=== PATIENT | female | born 1950 | race Caucasian/White ===

== ENCOUNTER → 2024-03-23 06:20 | Day surgery (SDC) | payer OTHER, SELFPAY ==
[2024-03-23 08:18] LABS: Glucose - Point of Care 200 mg/dl (70-99)
== END ==
LOC: GI 06:20
PROVIDERS: ATTENDING PHYSICIAN Specialist
DX: Z12.11 Encounter for screening for malignant neoplasm of colon (principal); Z86.010 Personal history of colon polyps; K57.30 Diverticulosis of large intestine without perforation or abscess without bleeding; D12.0 Benign neoplasm of cecum; D12.3 Benign neoplasm of transverse colon; D12.4 Benign neoplasm of descending colon; K31.89 Other diseases of stomach and duodenum; R10.11 Right upper quadrant pain; K29.50 Unspecified chronic gastritis without bleeding; K31.A0 Gastric intestinal metaplasia, unspecified
CPT/HCPCS: 45385; 45381; 43239; 88305; 82962; 88342

== ENCOUNTER → 2024-03-29 10:04 | Outpatient (REF) | payer OTHER, SELFPAY | LOC: HWRAD 10:04 | PROVIDERS: ATTENDING PHYSICIAN Specialist; FAMILY PHYSICIAN Physician Assistant Medical | DX: K76.0 Fatty (change of) liver, not elsewhere classified (principal) | CPT/HCPCS: 76700 ==

== ENCOUNTER → 2024-04-08 08:58 | Outpatient (REF) | payer OTHER, SELFPAY | LOC: RAD 08:58 | PROVIDERS: ATTENDING PHYSICIAN Specialist; FAMILY PHYSICIAN Physician Assistant Medical | DX: R10.31 Right lower quadrant pain (principal) | CPT/HCPCS: 74177; Q9967 ==

== ENCOUNTER → 2024-10-11 06:15 | Day surgery (SDC) | payer OTHER, SELFPAY ==
[2024-10-11 07:25] LABS: Glucose - Point of Care 105 mg/dl (70-99)
== END ==
LOC: GI 06:15
PROVIDERS: ATTENDING PHYSICIAN Specialist
DX: Z12.11 Encounter for screening for malignant neoplasm of colon (principal); D12.0 Benign neoplasm of cecum; D12.3 Benign neoplasm of transverse colon; D12.4 Benign neoplasm of descending colon; K57.30 Diverticulosis of large intestine without perforation or abscess without bleeding; Z86.0101 Personal history of adenomatous and serrated colon polyps
CPT/HCPCS: 45385; 45380; 88305; 82962

== ENCOUNTER → 2025-06-09 14:22 | Outpatient (REF) | payer OTHER, SELFPAY | LOC: MRI 14:22 | PROVIDERS: ATTENDING PHYSICIAN Specialist; FAMILY PHYSICIAN Physician Assistant Medical | DX: K76.0 Fatty (change of) liver, not elsewhere classified (principal) | CPT/HCPCS: 74181; 76391 ==

== ENCOUNTER 2025-08-12 13:09 | Inpatient (IN) | payer OTHER, SELFPAY ==
[2025-08-12] VITALS (7 sets, daily range): BP systolic 146–176; BP diastolic 77–89; BMI 32.2
--- NOTE | 2025-08-12 09:10 | ED.GENMED ---
History of Present Illness
<Claire Borges PA-C - Last Filed: 08/12/25 11:41>
General
Chief Complaint: Fall
Source: patient
Exam Limitations: none
Time Seen by Provider: 08/12/25 08:58
Nursing documentation reviewed up to this point in time: agreed with
History of Present Illness
History of Present Illness:
Patient is a 75-year-old female with history diabetes who presents to the emergency department after fall this morning. She states she was leaning over in her bed to grab her phone when she slipped out of bed landing on her right side. She is
unsure if she hit her head. Fortunately�her phone was nearby and she was able to call her daughter for help. She then contacted 911 for transportation to the emergency department.
She describes significant pain in her right hip and right knee. She has been unable to bear weight or move her right lower extremity. She denies any headache or neck pain. No numbness/tingling in lower extremities.
She had a right knee replacement about 20 years ago.
She is not on any oral anticoagulation.
Past History
<Claire Borges PA-C - Last Filed: 08/12/25 11:41>
Past History
ED Past Medical History: Asthma, NIDDM and Other (History of arthritis, neck pain)
ED Past Surgical History: , Orthopedic (Knee surgery), Tonsilectomy and Other (Hernia surgery)
Social History
Tobacco: Non-smoker
Personal:
Living: alone
Employment: Employed
Review of Systems
<Claire Borges PA-C - Last Filed: 08/12/25 11:41>
Review of Systems
Allergies reviewed?: Yes
All Other Systems: ROS reviewed and negative except as documented in HPI and ROS
Phy Exam
<Claire Borges PA-C - Last Filed: 08/12/25 11:41>
Physical Exam
Physical Exam:
GENERAL: Mild distress due to pain
HEENT: atraumatic, extraocular muscles intact, no signs of entrapment, dentition intact, no other obvious trauma
NECK: no midline tenderness, normal range of motion,no other obvious trauma
BACK: no midline tenderness, no other obvious trauma
CHEST: Mild reproducible tenderness to right lower chest wall, no flail segment, no subcutaneous emphysema, no other obvious trauma
LUNGS: clear to auscultation bilaterally
CARDIOVASCULAR: regular rate and rhythm
ABDOMEN: soft, non-tender, no masses, no other obvious trauma
PELVIS: stable
EXTREMITIES: Right lower extremity shortened and externally rotated. Significant tenderness in right inguinal region/right proximal thigh. Reproducible tenderness of right proximal lower leg. No obvious deformity of right knee or effusion. Left
lower extremity atraumatic nontender full range of motion. Bilateral upper extremities atraumatic and nontender with full range of motion. Distal pulses intact
NEUROLOGIC: awake, alert x 3, no focal deficits
Course
<Claire Borges PA-C - Last Filed: 08/12/25 11:41>
Orders/Labs/Results
Orders:
Orders
08/12/25 09:07
CT Head W/o Iv Contrast Urgent
Comment:
Reason For Exam: Fall, unknown head strike
Hip, Right 2-3 Views [CR Hip - RT w/wo Pel 2-3 Vw*] Urgent
Comment:
Reason For Exam: fall
Include a pelvis x-ray?: Yes
Knee, Right 4 or More Views [CR Knee- Right 4 Or More View*] Urgent
Comment:
Reason For Exam: fall
Ribs, Right 3 View W/PA Chest [CR Ribs-right 3 Vw W/pa Chest*] Urgent
Comment:
Reason For Exam: Fall, right chest wall pain
08/12/25 09:08
Morphine Sulfate 4 mg IV NOW STA
08/12/25 09:20
Basic Metabolic Panel Urgent
Complete Blood Count/With Diff Urgent
08/12/25 10:31
HYDROmorphone [Dilaudid] 0.5 mg .ROUTE .STK-MED ONE
08/12/25 10:32
HYDROmorphone [Dilaudid] 0.5 mg IV NOW STA
08/12/25 11:00
Lidocaine [Lidocaine 4% Patch] 1 patch TOPICAL NOW STA
Apply Lidocaine patch(s) to:: Right lateral chest
Abnormal Lab Results
08/12/25
09:20
MCH 31.3 H pg
(27.0-31.0)
MPV 10.7 H fL
(7.4-10.4)
Chloride 108 H mmol/L
(98-107)
Glucose 150 H mg/dl
(70-99)
08/12/25 09:20
08/12/25 09:20
Vital Signs
Initial and Last Documented VS:
Initial Vital Signs
Temp Pulse Resp BP Pulse Ox
97.4 F 79 18 160/86 100
08/12/25 08:45 08/12/25 08:45 08/12/25 08:45 08/12/25 08:45 08/12/25 08:45
Last Documented Vital Signs
Temp Pulse Resp BP Pulse Ox
97.4 F 78 15 146/85 99
08/12/25 08:45 08/12/25 11:15 08/12/25 11:15 08/12/25 09:00 08/12/25 11:15
<John Moeller MD - Last Filed: 08/12/25 10:50>
Orders/Labs/Results
Orders:
Orders
08/12/25 09:07
CT Head W/o Iv Contrast Urgent
Comment:
Reason For Exam: Fall, unknown head strike
Hip, Right 2-3 Views [CR Hip - RT w/wo Pel 2-3 Vw*] Urgent
Comment:
Reason For Exam: fall
Include a pelvis x-ray?: Yes
Knee, Right 4 or More Views [CR Knee- Right 4 Or More View*] Urgent
Comment:
Reason For Exam: fall
Ribs, Right 3 View W/PA Chest [CR Ribs-right 3 Vw W/pa Chest*] Urgent
Comment:
Reason For Exam: Fall, right chest wall pain
08/12/25 09:08
Morphine Sulfate 4 mg IV NOW STA
08/12/25 09:20
Basic Metabolic Panel Urgent
Complete Blood Count/With Diff Urgent
08/12/25 10:31
HYDROmorphone [Dilaudid] 0.5 mg .ROUTE .STK-MED ONE
08/12/25 10:32
HYDROmorphone [Dilaudid] 0.5 mg IV NOW STA
08/12/25 11:00
Lidocaine [Lidocaine 4% Patch] 1 patch TOPICAL NOW STA
Apply Lidocaine patch(s) to:: Right lateral chest
Abnormal Lab Results
08/12/25
09:20
MCH 31.3 H pg
(27.0-31.0)
MPV 10.7 H fL
(7.4-10.4)
Chloride 108 H mmol/L
(98-107)
Glucose 150 H mg/dl
(70-99)
08/12/25 09:20
08/12/25 09:20
Vital Signs
Initial and Last Documented VS:
Initial Vital Signs
Temp Pulse Resp BP Pulse Ox
97.4 F 79 18 160/86 100
08/12/25 08:45 08/12/25 08:45 08/12/25 08:45 08/12/25 08:45 08/12/25 08:45
Last Documented Vital Signs
Temp Pulse Resp BP Pulse Ox
97.4 F 78 15 146/85 99
08/12/25 08:45 08/12/25 11:15 08/12/25 11:15 08/12/25 09:00 08/12/25 11:15
<Claire Borges PA-C - Last Filed: 08/12/25 11:41>
MDM/Problems Addressed
Differential Diagnosis Includes:
Not limited to: Hip fracture, hip dislocation, pelvic fracture, rib fracture, tibial plateau fracture, ligamentous injury, intracerebral hemorrhage, etc.
MDM/Problems Addressed:
75-year-old female presents to the ED after an unwitnessed fall from bed this morning. Patient reports landing on her right side with subsequent right hip and right knee pain. She is unable to bear weight on right lower extremity. Unknown head
strike. No neck pain reported.
On exam, right lower extremity shortened and externally rotated concerning for possible right hip fracture. Neurovascular status intact. No evidence of open injury. No anticoagulation.
ED plan: X-ray imaging of right hip, right knee. Will check x-ray of right ribs given reproducible tenderness on exam. Will obtain CT head given unwitnessed fall. Patient has no neck pain and full range of motion�do not feel imaging of cervical
spine indicated. Morphine ordered. She remains hemodynamically stable. Will reassess following imaging to determine disposition.
Update: Head CT without acute traumatic injuries. X-ray of right hip does reveal a comminuted intertrochanteric fracture of the right femur. Subtle nondisplaced fracture of right anterior seventh rib noted as well. Discussed with orthopedics,
Michael. Will admit to hospitalist with plan for OR tomorrow. Patient accepted to hospitalist service in stable condition. Discussed with patient and daughter at bedside.
Chronic conditions affecting care:
N/A
Acute Exacerbation and/or Progression of Chronic Illness:
N/A
<Claire Borges PA-C - Last Filed: 08/12/25 11:41>
*Radiology
Radiology exam reviewed: preliminary read by ED provider (Right hip x-ray reviewed by me-comminuted intertrochanteric fracture of right femur) and radiology read reviewed
*Pulse Oximetry
SaO2: 100
Oxygen Mode of Delivery: Room air
Patient hypoxic: no
*EKG
Interpreted by ED Provider?: NA
*Freight Weigher Interpretation
Rate: Freight Weigher- N/A
*Critical Care Note
Total Time (30-74mins, 75-104mins- exclusive of procedures): Not Applicable
<Claire Borges PA-C - Last Filed: 08/12/25 11:41>
Patient Management
Discussion with other providers: Hospitalist and Learning And Development Administrator (Case discussed with orthopedics)
ED Attending Note
<Claire Borges PA-C - Last Filed: 08/12/25 11:41>
-
Portions of this chart may have been created with voice recognition software.� Occasional wrong word or��sound alike� substitutions may have occurred due to the inherent limitations of voice recognition software.
<John Moeller MD - Last Filed: 08/12/25 10:50>
ED Attending Note
Patient seen and examined by attending physician: Yes
I performed the substantive portion of visit, reviewed & personally made and approve the management plan that is documented in note by myself or AKIL.: Yes
ED Attending Note:
75-year-old female slid out of bed landing on her right side. Not sure if she had any significant head injury. Mostly complaining of right hip pain unable to ambulate. Some mild pain with breathing. Takes an aspirin a day. No other issues or
complaints.
TRAUMA EXAM:
VITAL SIGNS: Vital signs reviewed, cooperative
DISTRESS: No active disease
FACE AND SCALP: No scalp or facial trauma, external canals no blood
NECK: Supple nontender
BACK: Pelvis stable to compression
RESPIRATORY: No distress, breath sounds normal, no tender chest wall
CARDIAC: No murmur, pulses equal and strong
ABDOMEN: Soft nontender bowel sounds normal
SKIN: Skin intact no bleeding, color normal
EXTREMITIES: Shortening external rotation of the right leg. Good distal pulses and color. No other significant bony tenderness
NEUROLOGICAL: Alert, oriented, no motor deficits
PSYCH: Mood affect normal
Impression comminuted intertrochanteric right hip fracture. Head CT negative. Nothing obvious on rib x-rays. Medically stable. Admit for definitive orthopedic management
Discharge Plan
Departure
Patient Disposition: Admit
Date of Disposition: 08/12/25
Time of Disposition: 10:33
Presentation/result/management discussed w/ accepting MD/DO: Hospitalist
Discharge Problem:
Intertrochanteric fracture of right femur
Prescriptions:
No Action
aspirin [Aspir-Low] 81 MG tablet,delayed release (DR/EC)
81 mg PO DAILY
Metformin Extended Release
500 tab PO BID
ibuprofen 600 mg Tablet
600 mg PO Q6HPRN PRN (Reason: Pain)
diclofenac sodium 1 % Gel
2 g TOPICAL QIDPRN PRN (Reason: pain)
bupropion HCl 300 mg Tablet Extended Release 24 Hr
300 mg PO DAILY
duloxetine 30 mg Capsule,Delayed Release(Dr/Ec)
30 mg PO DAILY
cholecalciferol (vitamin D3) [Vitamin D3] 125 mcg (5,000 unit) Tablet
125 mcg PO DAILY
mupirocin 2 % ointment
1 applic topical BID Qty: 1 0RF
Patient Comments:
Patient started this treatment on 07/08/22 in the morning. Patient adminsistered this medication today 07/11/22 @ 05:30.
aspirin 325 mg Tablet
325 mg PO DAILY 30 Days Qty: 30 0RF
Rx Instructions:
After 4 weeks, you may resume Aspirin 81 mg po daily as taken prior to surgery
mupirocin 2 % Ointment
1 applic intranasal BID Qty: 15 0RF
Rx Instructions:
Continue for 2 days post op
docusate sodium 100 mg Capsule
100 mg PO BID Qty: 14 0RF
Rx Instructions:
Take while using narcotic pain medication post operatively
famotidine 20 mg Tablet
20 mg PO HS 28 Days Qty: 28 0RF
sennosides [senna] 8.6 mg Tablet
17.2 mg PO BID 14 Days Qty: 56 0RF
Rx Instructions:
Take while using narcotic pain medication to prevent constipation
amlodipine 2.5 mg Tablet
2.5 mg PO DAILY Qty: 0 0RF
oxycodone 5 mg Tablet
5 mg PO Q4HPRN PRN (Reason: moderate pain) 5 Days Qty: 20 0RF
Rx Instructions:
Sent to [facility] in [place]
Referrals:
Tammi Orellana PA-C [Family Provider, Internal Medicine]
Interventions
Interventions:
*Risk Screen - Suicide Last Done: 08/12/25 08:52
*General Assessment Last Done: 08/12/25 08:52
*Neglect/Abuse Screening Last Done: 08/12/25 08:52
*ED- Fall Risk Assessment Last Done: 08/12/25 09:03
*ED COVID-19 Vaccine History Last Done: 08/12/25 09:03
*ED Influenza Vaccine History Last Done: 08/12/25 09:03
ED-Musculoskeletal Assessment Last Done: 08/12/25 09:04
ED- Neurological Assessment Last Done: 08/12/25 09:04
ED-Skin Assessment Last Done: 08/12/25 09:04
Discharge Date and Time
Print Language: WELSH
[2025-08-12] MEDS: MORPHINE SULFATE 4 MG IV (09:19)
[2025-08-12 09:44] LABS: Hematocrit 38.9 % (37.0-47.0); Hemoglobin 13.3 g/dL (12.0-16.0); Mean Corp Hgb Conc. 34.2 g/dL (33.0-37.0); Mean Corpuscular Volume 91.5 fL (81.0-99.0); Nucleated Red Blood Cells % 0 %; Platelet Count 198 10^3/uL (130-400); Red Cell Dist. Width 13.1 % (11.5-14.5)
[2025-08-12 09:59] LABS: Blood Urea Nitrogen 12 mg/dl (7-17); Calcium 9.3 mg/dl (8.4-10.2); Carbon Dioxide 24 mmol/L (22-30); Chloride 108 mmol/L (98-107); Estimated Creatinine Clearance 65 ml/min; Glucose 150 mg/dl (70-99); Sodium 139 mmol/L (135-145); eGFR > 60.00
[2025-08-12] MEDS: DILAUDID 0.5 MG IV ×4 (10:57→23:40)
[2025-08-12] MEDS: LIDOCAINE 4% PATCH 1 PATCH TOPICAL (11:12)
--- NOTE | 2025-08-12 11:31 | CM ---
Patient seen at bedside in ED with physician and patient daughter present. Patient stated that she lives alone in a 3 story home. Patient daughter drives patient and assists as needed when she is around. Patient daughter states she travels alot for
work. Patient has a walker and a cane at home. Patient has had VN in the distant past but is unsure of which agency it was. Patient stated that she uses [facility] on [address] in [place] although the [facility].
Patient expressed concerns about possible need for supports at home after surgery and CM reviewed possible need for SNF pending patient functional status/medical treatment plan. CM will continue to follow for discharge planning needs.
Plan; pending functional status post surgery; SNF vs home with VN/therapy.
--- NOTE | 2025-08-12 11:44 | HPS.HSE ---
Family Physician
-
Family Physician: Tammi Orellana PA-C
Chief Complaint
-
fall resulting in rib and hip fracture
History of Present Illness
75yoF PMH HTN, NIDDM, depression/anxiety presenting from falling at home onto her right side. She was laying in bed when she heard her phone and reached out for it, falling out of bed. She reports R sided pain from her chest down to ankle, reporting
worse pain of her knee and hip primarily.
Pt denies dizziness, lightheadedness. She is not on blood thinners but takes a baby aspirin at night; she does not remember why she is prescribed it. Denies palpitations, SOB, chest pain. No PMH arrhythmia or cardiac dx. Pt reports her physician was
worried about osteoporosis and is prescribed Vit D but has not had a formal dx of osteoporosis.
Pt had negative CT of head, xrays demonstrating R intertrochanteric fracture, 7th rib fracture
Pt reports no recent heart surgery. She can walk up a flight of stairs limited by back pain but no SOB or chest pain. No Hx NJ or CVA. RCRI 0, metabolic equivalent 4.
Medical History
Past Medical History
Past Medical History: Reports GERD, HTN, NIDDM and Psychiatric (anxiety, depression); Denies Arrhythmia
Additional Past Medical History:
hepatic steatosis, colon polyps
Past Surgical History: Reports Orthopedic (bilateral knee)
Social History
Tobacco: Non-smoker
Alcohol: None
Living: Alone
Family History
Family History: Not pertinent
Allergies / Home Medications
Allergies reflects when Allergies were last updated in [facility].
Home Medications with original date entered in [facility]
Allergy/Medication List:
Allergies
Allergy/AdvReac Type Severity Reaction Status Date / Time
amoxicillin Allergy Diarrhea Verified 08/10/22 12:46
Cephalosporins Allergy Unknown Verified 08/10/22 12:46
clavulanic acid Allergy Unknown Verified 08/10/22 12:46
diclofenac Allergy Unknown Verified 08/10/22 12:46
NSAIDS (Non-Steroidal Allergy Unknown Verified 08/10/22 12:46
Anti-Inflamma
Penicillins Allergy Unknown Verified 08/10/22 12:46
prednisone Allergy Unknown Verified 08/10/22 12:46
Home Medications
bupropion HCl 300 mg 24 hr tablet, extended release 300 mg PO DAILY@1100 Depression 06/12/22
amlodipine 2.5 mg tablet 2.5 mg PO DAILY Blood pressure #0 tabs 07/11/22
famotidine 20 mg tablet 20 mg PO HS 4 weeks #28 tabs 07/11/22
Lactobac no.2-Bifidobac no.1-S. thermo 112.5 billion cell capsule (Visbiome) 1 cap PO DAILY 08/12/25
aspirin 81 mg tablet,delayed release 81 mg PO DAILY 08/12/25
cholecalciferol (vitamin D3) 25 mcg (1,000 unit) tablet (Vitamin D3) 25 mcg PO DAILY 08/12/25
cyanocobalamin (vitamin B-12) 1,000 mcg/mL injection solution 1,000 mcg SC QMONTH 08/12/25
duloxetine 60 mg capsule,delayed release 60 mg PO DAILY 08/12/25
latanoprost 0.005 % eye drops 1 drp BOTH EYES HS 08/12/25
turmeric 400 mg capsule 400 mg PO DAILY 08/12/25
Review of Systems
-
History Source: Patient
A 12 point ROS was completed and negative except as noted: Yes
Musculoskeletal: Reports Muscle Pain
Physical Exam
Vital Signs
Vital Signs
Temp Pulse Resp BP Pulse Ox
97.4 F 78 15 146/85 99
08/12/25 08:45 08/12/25 11:15 08/12/25 11:15 08/12/25 09:00 08/12/25 11:15
Physical Exam
General: Well Developed, Well Nourished, Conversant and Pain
HEENT: NormoCephalic, Anicteric, Moist mucous membranes, Atraumatic, Nose Appears Normal and Ears Appear Normal
Respiratory: Clear and Non Labored Respirations
Cardiac: S1/S2 and Regular Rhythm (PVCs seen on monitor)
GI: Soft, Non Tender and Non Distended
Genito-urinary: Clear Urine
Musculoskeletal: Other (R chest pain to palpation, tenderness to R lateral malleolus, lateral knee and hip. Able to flex and extend foot with pain from hip, extremity externally rotated)
Skin: Warm and Dry
Neuro: AO x 3, Nonfocal/grossly intact and No Sensory Deficits
Psych: Calm
Laboratory Results
-
08/12/25 09:20
08/12/25 09:20
Impression/Plan
-
IMPRESSION:
75yoF PMH CKD, HTN, NIDDM presenting from fall from bed with R hip, 7th rib fracture.
AFVSS. Pt hemodynamically stable. RCRI 0, acceptable risk for surgery Thursday. Electrolytes WNL, sample was hemolyzed so plan to repeat BMP. Goal to manage pain. Orthopedics plan to operate Thursday. Hold home aspirin.
PLAN:
#hip fracture
- Orthopedics will bring to OR tuesday 08/14
- Goal to manage pain. Tylenol, ibuprofen, PRN dilaudid
- Continue home vit D
#rib fracture
- IS, acapella
- lidocaine patch
#PVCs on EKG
- repeat BMP. hemolyzed K
Chronic
- HTN, depression, anxiety, gerd
- Continue home medications
DVT prophylaxis: foot pumps
Code: Full
Diet: regular, npo thursday for OR
--- NOTE | 2025-08-12 12:07 | CON.ORTHO ---
Consultation - Orthopedics
History
75-year-old female presenting via EMS to [facility] after a mechanical fall out of her bed landing on her right side. She reports immediate pain inability to bear weight was taken via EMS to [place] and diagnosed with a displaced right
intertrochanteric femur fracture. She reports that she is a community ambulator short distances without assistive devices however reports long distances she may use a cane. She does report some prodromal hip osteoarthritic pain however denies
previous injection or specific diagnosis and is potentially lateral based hip pain. She has a history of partial knee replacement of the right and total knee replacement of the left per patient and has some chronic knee pain as well.
Allergies / Home Medications
Past History
ED Past Medical History: Asthma, NIDDM and Other (History of arthritis, neck pain)
ED Past Surgical History: , Orthopedic (Knee surgery) R unicompartmental arthroplasty, L TKA, Tonsilectomy and Other (Hernia surgery)
Social History
Tobacco: Non-smoker
Personal:
Living: alone
Employment: Employed
Allergy/AdvReac Type Severity Reaction Status Date / Time
amoxicillin Allergy Diarrhea Verified 08/10/22 12:46
Cephalosporins Allergy Unknown Verified 08/10/22 12:46
clavulanic acid Allergy Unknown Verified 08/10/22 12:46
diclofenac Allergy Unknown Verified 08/10/22 12:46
NSAIDS (Non-Steroidal Allergy Unknown Verified 08/10/22 12:46
Anti-Inflamma
Penicillins Allergy Unknown Verified 08/10/22 12:46
prednisone Allergy Unknown Verified 08/10/22 12:46
�Medication �Instructions �Recorded
bupropion HCl 300 mg 24 hr tablet, 300 mg PO DAILY@1100 Depression 06/12/22
extended release
amlodipine 2.5 mg tablet 2.5 mg PO DAILY Blood pressure #0 07/11/22
tabs
famotidine 20 mg tablet 20 mg PO HS 4 weeks #28 tabs 07/11/22
Lactobac no.2-Bifidobac no.1-S. 1 cap PO DAILY 08/12/25
thermo 112.5 billion cell capsule
(Visbiome)
aspirin 81 mg tablet,delayed 81 mg PO DAILY 08/12/25
release
cholecalciferol (vitamin D3) 25 25 mcg PO DAILY 08/12/25
mcg (1,000 unit) tablet (Vitamin
D3)
cyanocobalamin (vitamin B-12) 1,000 mcg SC QMONTH 08/12/25
1,000 mcg/mL injection solution
duloxetine 60 mg capsule,delayed 60 mg PO DAILY 08/12/25
release
latanoprost 0.005 % eye drops 1 drp BOTH EYES HS 08/12/25
turmeric 400 mg capsule 400 mg PO DAILY 08/12/25
Vital Signs / Lab Results
Temp Pulse Resp BP Pulse Ox
97.4 F 80 19 162/87 99
08/12/25 08:45 08/12/25 12:00 08/12/25 12:00 08/12/25 12:00 08/12/25 12:00
PHYSICAL EXAM: Examination of the right lower extremity shows skin is intact with no erythema edema or ecchymosis. There is tenderness around the right hip area. There is no effusion about the right knee. Examination limited secondary to pain
about the hip but no specific tenderness about the knee itself other than the joint lines. Distally there is no specific area of tenderness or ecchymosis or ankle effusion and grossly neurovasc intact L3-S1
X-rays taken of the right hip show a comminuted displaced intertrochanteric femur fracture with mild to moderate femoral acetabular osteoarthrosis
X-rays taken of the right knee show unicompartmental arthroplasty with no evidence of hardware complication or acute osseous abnormalities however limited projections
08/12/25 09:20
08/12/25 09:20
Assessment / Plan
75F right displaced intertrochanteric femur fracture DOI 12 August 2025
- Discussed with the patient as well as relative family members the significance of hip fractures there is an increased morbidity and mortality associated with these and they are significant injuries; reviewed that a portion of patient's return
towards ambulatory baseline status, another subset of patients are decreased when activity level, and other subset of patients pass away relative to comorbid conditions and decreased ambulatory status. Discussed it is recommended for majority of
patients to undergo operative intervention for optimal outcomes so that they may have an increased ambulatory status.
- Patient at baseline is a community ambulator with occasional use of assistive device. Recommended for operative invention for right hip reduction and cephalomedullary nail fixation with Dr. Rodriguez tentative for OR 13 August 2025. She is
accompanied by her daughter today who verified understanding of the plan as well
- N.p.o. at midnight
- Antibiotics on-call to the OR as ordered
- Pain control regimen. Nonweightbearing to right lower extremity
- Consent obtained on file and given to vest front presser at the operating room
It was further discussed with the patient that the injury sustained is considered a fragility fracture which occurs in the setting of osteoporosis. Discussed with the patient the significance of this as there is an increased risk of further
fragility fractures in the future. Recommend when discharged and in the nearby future for a follow-up with her primary care provider and discussion of management of osteoporosis and mitigating fall risk is much as possible in the future.
--- NOTE | 2025-08-12 13:37 | W.PN.UPDATE ---
Update Note
Progress Note Update
75 female who fell out of bed landed on her right side as she was reaching for her cell phone. Did not have any shortness of breath palpitations loss of consciousness. No associated numbness tingling loss of sensations. However as soon as she had
the floor she developed right sided pain. While in the ED hemodynamically stable. Trauma workup which consisted of head CT hip x-ray knee x-ray ribs with chest x-ray. Head CT no acute intracranial abnormality. Hip x-ray commuted slightly
impacted intertrochanteric fracture of the right hip with mild foreshortening and mild to moderate hip arthritis. Knee x-ray with positioning and limited range of motion, mild medial compartment hemiarthroplasty appears to be intact well-seated,
trace suprapatellar effusion and no direct radiographic evidence of fracture. Lateral compartment and patellofemoral arthritis. Rib/chest x-ray subtle nondisplaced anterior right seventh rib fracture and no acute cardiopulmonary process.
12 point ROS completed everything negative apart from what is stated above
bus monitor sinus rhythm with PVCs
NAD
Scleral Anicteric
MMM
No JVD
CTABL
IRR, S1/S2
Soft, NT, ND, BS+
Warm, Dry, right lower extremity shortened and externally rotated
AAOx3
Calm
Right nondisplaced fracture of the hip
RCRI 0, metabolic equivalents equal to 4. Banks score 0.2% MICV risk
EKG ordered and reviewed sinus rhythm with PVC
Acceptable risk to proceed with a low to intermediate risk surgery with gamma nail if surgery and anesthesia want to continue to proceed
Ortho planning to take to the OR for gamma nail 08/13
Preoperatively continue analgesics antiemetics IV fluids n.p.o. after midnight
Hold vitamin D B12 preoperatively
Continue amlodipine bupropion Cymbalta Pepcid
Postoperatively will need PT/OT
DVT prophylaxis per orthopedics
Analgesic therapy per orthopedics
Ankle pumps, tightening of buttocks
Incentive spirometer
Hypertension
Continue antihypertensives
GERD
Continue Pepcid
B12 deficiency
Hold B12
Vitamin D deficiency/osteoporosis
Outpatient DEXA scan
Hold D3 preoperatively
DVT prophylaxis
Low molecular weight heparin 40 mg subcu. Hold morning of surgery
I personally reviewed and evaluated this patient with the resident. I agree with above unless if otherwise stated below.
I personally reviewed labs and imaging virtualization consultant notes case management note
[2025-08-12] MEDS: MOTRIN 400 MG PO ×2 (15:11→22:44)
[2025-08-12] MEDS: NORVASC 2.5 MG PO (15:12)
[2025-08-12] MEDS: VITAMIN D3 (cholecalciferol) 25 MCG PO (15:12)
[2025-08-12] MEDS: VISBIOME 1 CAP PO (15:12)
[2025-08-12 15:31] LABS: Blood Urea Nitrogen 13 mg/dl (7-17); Calcium 9.1 mg/dl (8.4-10.2); Carbon Dioxide 23 mmol/L (22-30); Chloride 109 mmol/L (98-107); Estimated Creatinine Clearance 65 ml/min; Glucose 166 mg/dl (70-99); Potassium 4.3 mmol/L (3.5-5.1); Sodium 139 mmol/L (135-145); eGFR > 60.00
--- NOTE | 2025-08-12 15:42 | PTCARENOTE ---
Patient admitted from home following a fall with a fractured right hip and right shoulder.The patient rates her pain at a 7-9 out of 10.She will have surgery tomorrow.Vital signs are stable.The patient is in her bed with the call henning in place.
[2025-08-12] MEDS: TYLENOL 650 MG PO ×2 (17:25→20:51)
[2025-08-12] MEDS: CYMBALTA DELAYED RELEASE 60 MG PO (17:25)
[2025-08-12] MEDS: PEPCID 20 MG PO (22:43)
[2025-08-12] MEDS: XALATAN OPHTHALMIC SOLUTION 1 DROP BOTH EYES (22:44)
[2025-08-13] VITALS (9 sets, daily range): BP systolic 115–156; BP diastolic 64–80; PULSE 77–78; O2SAT 96
[2025-08-13] MEDS: TYLENOL PO ×2 (00:54→04:58)
[2025-08-13] MEDS: DILAUDID 0.5 MG IV (05:17)
[2025-08-13 06:26] LABS: Hematocrit 38.2 % (37.0-47.0); Hemoglobin 12.5 g/dL (12.0-16.0); Mean Corp Hgb Conc. 32.7 g/dL (33.0-37.0); Mean Corpuscular Volume 96.7 fL (81.0-99.0); Platelet Count 196 10^3/uL (130-400); Red Cell Dist. Width 13.0 % (11.5-14.5)
[2025-08-13 07:00] LABS: Blood Urea Nitrogen 12 mg/dl (7-17); Calcium 8.7 mg/dl (8.4-10.2); Carbon Dioxide 24 mmol/L (22-30); Chloride 105 mmol/L (98-107); Estimated Creatinine Clearance 65 ml/min; Glucose 129 mg/dl (70-99); Potassium 3.8 mmol/L (3.5-5.1); Sodium 137 mmol/L (135-145); eGFR > 60.00
[2025-08-13] MEDS: DILAUDID 1 MG IV (08:27)
[2025-08-13] MEDS: TYLENOL 650 MG PO ×4 (08:30→20:22)
[2025-08-13] MEDS: CYMBALTA DELAYED RELEASE 60 MG PO (08:30)
[2025-08-13] MEDS: DESENEX/MITRAZOL/ZEASORB TOPICAL (08:31)
[2025-08-13] MEDS: NORVASC 2.5 MG PO (08:31)
[2025-08-13] MEDS: VISBIOME 1 CAP PO (08:32)
[2025-08-13] MEDS: VITAMIN D3 (cholecalciferol) 25 MCG PO (08:36)
--- NOTE | 2025-08-13 08:43 | W.PN.HOSP.TC ---
Addendum entered and electronically signed by Tom Newman MD 08/13/25 11:53:
Right nondisplaced fracture of the hip
RCRI 0, metabolic equivalents equal to 4. Banks score 0.2% FOREIGN risk
EKG ordered and reviewed sinus rhythm with PVC
Acceptable risk to proceed with a low to intermediate risk surgery with gamma nail if surgery and anesthesia want to continue to proceed
Ortho planning to take to the OR for gamma nail 08/13, maintain npo until surgeyr
Preoperatively continue analgesics antiemetics IV fluids
Hold vitamin D B12 preoperatively
Continue amlodipine bupropion Cymbalta Pepcid
Postoperatively will need PT/OT
DVT prophylaxis per orthopedics
Analgesic therapy per orthopedics
Ankle pumps, tightening of buttocks
Incentive spirometer
Hypertension
Continue antihypertensives
GERD
Continue Pepcid
B12 deficiency
Hold B12
Vitamin D deficiency/osteoporosis
Outpatient DEXA scan
Hold D3 preoperatively
DVT prophylaxis
Low molecular weight heparin 40 mg subcu. Hold morning of surgery
I personally reviewed and evaluated this patient with the resident. I agree with above unless if otherwise stated below.
I personally reviewed labs and imaging email production consultant notes case management note
Original Note:
Today's Communication/Plan
-
Plan reviewed with attending
OR today
Postop care per orthopedics appreciated
Assessment / Plan
Assessment / Plan
75yoF PMH CKD, HTN, NIDDM presenting from fall from bed with R hip, 7th rib fracture.
AFVSS. Pt hemodynamically stable. Electrolytes WNL. Goal to manage pain. OR today. After OR, aspirin 325 for DVT prophylaxis, PT/OT and postop instructions per orthopedics.
#hip fracture
- Orthopedics OR today
- Goal to manage pain. Tylenol, ibuprofen, PRN dilaudid
#rib fracture
- IS, acapella
- lidocaine patch
#PVCs on EKG
- Monitor for symptoms
- repeat BMP demosntrated electrolytes WNL
Chronic
- HTN, depression, anxiety, gerd
- Continue home medications
DVT prophylaxis: foot pumps
Code: Full
Diet: regular after OR
Anticipated Discharge: 24 - 48 hours
Subjective/Interval History
-
Date of Service: August 13, 2025
Pt reports continued hip but both anxious and eager to get surgery done today. No new complaints.
Objective Data
-
Labs:
Laboratory Results
08/13/25
06:03
WBC 10.4
Hgb 12.5
Hct 38.2
Plt Count 196
Sodium 137
Potassium 3.8
Chloride 105
Carbon Dioxide 24
BUN 12
Creatinine 0.7
Glucose 129 H
Calcium 8.7
Vital Signs:
Vital Signs
Temp Pulse Resp BP Pulse Ox
98.1 F 65 16 149/79 96
08/13/25 07:00 08/13/25 07:00 08/13/25 07:00 08/13/25 07:00 08/13/25 07:00
I&O
08/12/25 08/13/25 08/14/25
06:59 06:59 06:59
Output Total 725 / 725
Balance -725 / -725
Physical Exam
-
General: No Apparent Distress and Pain
HEENT: Normocephalic, Atraumatic and Moist Mucous Membranes
Respiratory: Clear to Auscultation
Cardiac: Regular Rhythm and S1/S2
GI: Soft and Nontender
Musculoskeletal: Other (RLE pain)
Skin: Warm and Dry
Neuro: AO x 3 and Nonfocal/Grossly Intact
Psych: Calm
--- NOTE | 2025-08-13 10:00 | PTCARENOTE ---
Report given to Sabrina. Pt sent to OR with chart.
--- NOTE | 2025-08-13 10:43 | W.PN.UPDATE ---
Update Note
Progress Note Update
75F s/p R XAVIER w/ Dr. Rodriguez
-partail weight bearing RLE
-early ambulation
-PT/OT/DC planning
-abx as ordered postop
-DVT ppx- asa as ordered unless recommended otherwise per primary
-diet and pain per primary
[2025-08-13] MEDS: ANCEF 10 IV (11:00)
--- NOTE | 2025-08-13 13:28 | PTCARENOTE ---
Pt arrived from PACU at aprox 1325. Pt drowsy on arrival. Vitals stable. Pt able to wiggle BL toes. Pain currently 5/10 to surgical area. 3 dressings on right hip/leg with some drainage. Ice packs being used. Encouraged pt to ring the call henning when
ready to order lunch.
[2025-08-13] MEDS: WELLBUTRIN XL (24 hour extended release) 300 MG PO (14:22)
[2025-08-13] MEDS: ANCEF 5 IV (18:25)
[2025-08-13] MEDS: LOW STRENGTH ASPIRIN 81 MG PO (20:22)
[2025-08-13] MEDS: DESENEX/MITRAZOL/ZEASORB 1 APPLIC TOPICAL (20:25)
[2025-08-13] MEDS: XALATAN OPHTHALMIC SOLUTION 1 DROP BOTH EYES (21:42)
[2025-08-13] MEDS: PEPCID 20 MG PO (21:42)
[2025-08-14] MEDS: ANCEF 5 IV (01:27)
[2025-08-14] MEDS: TYLENOL 650 MG PO ×4 (01:36→15:56)
[2025-08-14] MEDS: DILAUDID 0.5 MG IV (04:21)
[2025-08-14 06:20] VITALS: BP 120/55
[2025-08-14 06:38] LABS: Hematocrit 27.8 % (37.0-47.0); Hemoglobin 9.6 g/dL (12.0-16.0); Mean Corp Hgb Conc. 34.5 g/dL (33.0-37.0); Mean Corpuscular Volume 93.9 fL (81.0-99.0); Platelet Count 162 10^3/uL (130-400); Red Cell Dist. Width 12.9 % (11.5-14.5)
[2025-08-14 06:40] LABS: Blood Urea Nitrogen 18 mg/dl (7-17); Calcium 8.2 mg/dl (8.4-10.2); Carbon Dioxide 26 mmol/L (22-30); Chloride 104 mmol/L (98-107); Estimated Creatinine Clearance 57 ml/min; Glucose 133 mg/dl (70-99); Potassium 4.1 mmol/L (3.5-5.1); Sodium 135 mmol/L (135-145); eGFR > 60.00
[2025-08-14] MEDS: CYMBALTA DELAYED RELEASE 60 MG PO (08:06)
[2025-08-14] MEDS: LOW STRENGTH ASPIRIN 81 MG PO (08:06)
[2025-08-14] MEDS: VITAMIN D3 (cholecalciferol) 25 MCG PO (08:06)
[2025-08-14] MEDS: VISBIOME 1 CAP PO (08:06)
[2025-08-14] MEDS: DESENEX/MITRAZOL/ZEASORB 1 APPLIC TOPICAL (08:06)
[2025-08-14] MEDS: NORVASC 2.5 MG PO (08:20)
[2025-08-14] MEDS: MOTRIN 400 MG PO ×2 (08:28→17:38)
--- NOTE | 2025-08-14 08:52 | W.PN.ORTHO ---
Today's Communication / Plan
-
Appreciate the primary team, continue treatment
Dispo per CM, which is appreciated
Continue PWB RLE on walker
PT/OT
ASA 325mg (switched from 81mg BID) per SG x 4 weeks- If not tolerating well may switch back to 81mg BID
Dressing to remain 7-10 days
Pain control
Siri out 2 weeks (office or SNF)
If siri out at SNF outpatient Ortho follow-up in 4 weeks
Will follow
Assessment
.
Distal Motor Intact: Yes
Dressing:
Clean, dry and intact. Intact right thigh proximally and distally
Assessment:
POD#1 Right hip Gamma
Overall doing/feeling well
Calf soft, nontender
Plan
.
Surgery / Date: Right Gamma Aug 26 (Michael)
DVT Prophylaxis: Aspirin
Activity:
Out of bed. PWB on walker
PT/OT
Discharge Plan: Other (appreciate CM)
Subjective
.
.:
Patient resting comfortably. Endorses a moderate amount of right thigh pain
Vital Signs and Labs
.
Vital Signs and Labs:
Lab Results
08/14/25 05:56
08/14/25 05:56
Temp Pulse Resp BP Pulse Ox
98.9 F 72 16 122/60 100
08/14/25 06:20 08/14/25 08:20 08/14/25 06:20 08/14/25 08:20 08/14/25 06:20
--- NOTE | 2025-08-14 08:57 | W.PN.HOSP.TC ---
Addendum entered and electronically signed by Patrizia Seo MD 08/14/25 13:11:
Attending�addendum:
I�saw�and�evaluated�the�patient.�I�reviewed�the�resident�s�note�and�agree�with�findings�and�plan�as�documented�in�the�resident�s�note.��
�patient seen and examined at bedside, patient was sitting in a chair eating breakfast, patient denies any chest pain or shortness of breath, no abdominal pain, no nausea, no vomiting, no diarrhea or constipation.
Physical�exam:
GENERAL : Patient is awake, alert, oriented x3
HEENT: Nonicteric sclerae, PERRLA, EOMI. Oropharynx clear. Moist mucous membranes. Conjunctivae appear well perfused.
CHEST: Chest wall is nontender.
HEART: Regular rate and rhythm without murmurs.
LUNGS: Clear to auscultation bilaterally.
ABDOMEN: Soft, positive bowel sounds, nontender, no organomegaly.
RECTAL: Deferred.
SKIN: No rash, no excessive bruising, petechiae, or purpura.
Musculoskeletal: Right hip surgical site is clean
NEUROLOGIC: Cranial nerves II-XII intact without motor/sensory deficit.
�
Assessment/plan:
Status post fall with right hip fracture.
Status post Open reduction internal fixation right hip with gamma
nail.
Seen for physical therapy and plan for SNF
Pain control.
Right ankle pain.
X-ray pending
CODE STATUS: Full code
DVT prophylaxis: Aspirin
Diet: Regular diet
Disposition: Discharge to rehab if right ankle x-ray normal.
�
Total�time�spent�on�today�s�encounter�was�55�minutes�which�included�time�spent�in�counseling�the�patient/family�regarding�diagnosis�and�treatment�plan�as�listed�above,�goals�of�care,�and�symptom�management.�Case�was�discussed�with�nursing�staff,�spec
ialists,�and�care�coordinators/case�management.�All�labs�and�imaging�personally�reviewed�by�me.�Remainder�the�time�spent�in�detailed�review�of�previous�records,�lab�data,�imaging,�and�other�medical�provider�documentation.
Original Note:
Today's Communication/Plan
-
Plan reviewed with attending
ankle x rays
if xray negative, pt can go to rehab
Assessment / Plan
Assessment / Plan
75yoF PMH CKD, HTN, NIDDM presenting from fall from bed with R hip, 7th rib fracture.
AFVSS. Pt hemodynamically stable. Electrolytes WNL. Post op instructions per orthopedics. POD #1. Aspirin 325mg. PT/OT
Pt reports continued ankle pain. Xray today. Can go to rehab if negative.
#hip fracture
- Orthopedics OR yesterday
- Goal to manage pain. Tylenol, ibuprofen, PRN dilaudid
- Aspirin 325mg BID
#rib fracture
- IS, acapella
- lidocaine patch
#PVCs on EKG
- Monitor for symptoms
- Electrolytes WNL
Chronic
- HTN, depression, anxiety, gerd
- Continue home medications
DVT prophylaxis: foot pumps. aspirin per orthopedics
Code: Full
Diet: regular after OR
Anticipated Discharge: Within 24 hours
Subjective/Interval History
-
Date of Service: August 14, 2025
Pt reports continued hip, knee, and ankle pain, though managing. She has stairs at home and agrees it is not safe to go home currently. She is agreeable to rehab before returning home.
Objective Data
-
Labs:
Laboratory Results
08/14/25
05:56
WBC 10.6
Hgb 9.6 L D
Hct 27.8 L
Plt Count 162
Sodium 135
Potassium 4.1
Chloride 104
Carbon Dioxide 26
BUN 18 H
Creatinine 0.8
Glucose 133 H
Calcium 8.2 L
Vital Signs:
Vital Signs
Temp Pulse Resp BP Pulse Ox
98.9 F 72 16 122/60 100
08/14/25 06:20 08/14/25 08:20 08/14/25 06:20 08/14/25 08:20 08/14/25 06:20
I&O
08/13/25 08/14/25 08/15/25
06:59 06:59 06:59
Intake Total 580 / 580
Output Total 725 / 725
Balance -725 / -725 580 / 580
Physical Exam
-
General: Well Developed, Well Nourished and Pain (hip, post-op)
HEENT: Normocephalic, Atraumatic and Moist Mucous Membranes
Respiratory: Clear to Auscultation and Non Labored Respirations
Cardiac: Regular Rhythm and S1/S2
GI: Soft, Nontender and Nondistended
Musculoskeletal: No Edema and Other (R hip, knee, ankle pain. Tenderness to the lateral malleolus)
Skin: Warm and Dry
Neuro: AO x 3 and Nonfocal/Grossly Intact (sitting in chair)
Psych: Calm
--- NOTE | 2025-08-14 09:41 | CM ---
Addendum entered by Robbin Del Angel 08/14/25 16:06:
per [employer] pt is approved for SNF level of care at [facility] for 7 initial days from today 08/14/25 till 08/20/25 with LCD and NRD 08/20/25. Auth:[id number]. For review fax: [phone].
Auth information forwarded to [facility] admission coordinator Greta and she confirmed that pt is accepted for admission today.
IMM reviewed, placed on chart, pt has a copy.
UC to arrange ambulance transport BLS. PMNC completed and left with .
[facility] nursing report: [phone]
Discharge instructions fax: [phone]
D/C plan: [facility]
Addendum entered by Robbin Del Angel 08/14/25 14:31:
[facility] accepted the pt. Pt is aware, expressed her agreement.
CM initiated an auth from [facility] for SNF level of care at [facility], pending ref#: [id number]. Requested pt's clinical faxed to [facility] [phone]. Awaiting for an auth.
D/C plan: [facility]. Awaiting for an auth.
Original Note:
CM following re: discharge planning.
Reviewed pt's chart, met with pt.
Pt is POD#1 Right hip Gamma Continue supportive care. Per Ortho, overall doing/feeling well.
PT and OT evaluations noted - SNF level of care recommended. Pt is aware, expressed her agreement. Pt stated she lives alone, has a daughter who works during day time and limited ability to help. A list of SNFs provided, [pt preferred [facility] or [facility]. A referral to above SNFs made.
D/C plan: preferred SNF: [facility] or [facility]. Will need an auth.
CM will follow to assist pt with discharge to a preferred SNF.
[2025-08-14 10:02] VITALS: BP 115/55; PULSE 67; O2SAT 100
[2025-08-14 10:06] VITALS: BP 115/55; PULSE 67; O2SAT 96
[2025-08-14] MEDS: WELLBUTRIN XL (24 hour extended release) 300 MG PO (11:43)
[2025-08-14] MEDS: TYLENOL PO (12:50)
[2025-08-14 13:19] VITALS: BP 109/86
--- NOTE | 2025-08-14 14:42 | PN.CDI ---
CDI
- -
CDI:
Physician Documentation Request
Admit Date: 08/12/25 13:09
Dear Doctor William and Dr. Seo,
Please review the following and provide your response in the progress notes.
Clinical Indicators:
08/12 #Status post fall with right hip fracture.
08/13 #Status post Open reduction internal fixation right hip with gamma
Laboratory Tests
08/12/25 08/13/25 08/14/25
09:20 06:03 05:56
Hgb 13.3 12.5 9.6 L D
Hct 38.9 38.2 27.8 L
Based on the above and your clinical assessment, please clarify in the progress notes, the appropriate diagnosis, if significant, that supports the above abnormalities and additional evaluation, monitoring and/or treatment rendered:
Acute Blood Loss Anemia
Abnormal Lab Value, Clinically Insignificant
Other(please specify)
Use of terms such as suspected, likely, concern for, or probable (associated with a specific diagnosis that is being evaluated, monitored, or treated as if it exists) are acceptable and can be coded in the inpatient setting, when documented at the
time of discharge.
Thank you,
Melody Lay RN BSN CCDS
CDI Specialist
Please contact via tiger text
Please use your independent medical judgment in providing your response.
--- NOTE | 2025-08-14 14:49 | PN.CDI ---
CDI
- -
CDI:
Physician Documentation Request
Admit Date: 08/12/25 13:09
Dear Doctor William and Dr. Seo,
Please review the following and provide your response in the progress notes.
Clinical Indicators:
09/21/2018 DEXA Scan
#Indication: Patient is post-menopausal.
#IMPRESSION:
#...Osteoporosis based on femoral neck assessment.
#...statistically significant decrease in bone mineral density in the lumbar spine
#...and proximal femur since the prior examination.
ED, 08/12
#...leaning over in her bed to grab her phone when she slipped out of bed
#...landing on her right side.
H+P, 08/12
#...negative CT of head, xrays demonstrating R intertrochanteric fracture,
#...7th rib fracture
#hip fracture
PN, 08/12
#Vitamin D deficiency/osteoporosis
#...Outpatient DEXA scan
#rib fracture
Please clarify the following regarding the etiology of the right hip fracture and right rib fracture:
Multifactorial, low level trauma and age related osteoporosis
Traumatic fracture only
Other (please specify)
Type Fracture
Age-related With current pathological fx
Drug induced (specify drug) without current pathological fx
Idiopathic
Osteoporosis of disuse
Due to post surgical malabsorption
Post traumatic
Post oophorectomy osteoporosis
Use of terms such as suspected, likely, concern for, or probable (associated with a specific diagnosis that is being evaluated, monitored, or treated as if it exists) are acceptable and can be coded in the inpatient setting, when documented at the
time of discharge.
Thank you,
Melody Lay RN BSN CCDS
CDI Specialist
Please contact via tiger text
Please use your independent medical judgment in providing your response.
[2025-08-14 15:00] VITALS: BP 144/60
--- NOTE | 2025-08-14 16:30 | W.DCSUMMARY ---
Addendum entered and electronically signed by Patrizia Seo MD 08/15/25 07:58:
- hip fracture Multifactorial, low level trauma and age related osteoporosis.
- Acute Blood Loss Anemia (postoperatively).
Addendum entered and electronically signed by Patrizia Seo MD 08/14/25 17:35:
Attending�addendum:
I�saw�and�evaluated�the�patient.�I�reviewed�the�resident�s�note�and�agree�with�findings�and�plan�as�documented�in�the�resident�s�note.��
�patient seen and examined at bedside, patient was sitting in a chair eating breakfast, patient denies any chest pain or shortness of breath, no abdominal pain, no nausea, no vomiting, no diarrhea or constipation.
Physical�exam:
GENERAL : Patient is awake, alert, oriented x3
HEENT: Nonicteric sclerae, PERRLA, EOMI. Oropharynx clear. Moist mucous membranes. Conjunctivae appear well perfused.
CHEST: Chest wall is nontender.
HEART: Regular rate and rhythm without murmurs.
LUNGS: Clear to auscultation bilaterally.
ABDOMEN: Soft, positive bowel sounds, nontender, no organomegaly.
RECTAL: Deferred.
SKIN: No rash, no excessive bruising, petechiae, or purpura.
Musculoskeletal: Right hip surgical site is clean
NEUROLOGIC: Cranial nerves II-XII intact without motor/sensory deficit.
�
Assessment/plan:
Status post fall with right hip fracture.
Status post Open reduction internal fixation right hip with gamma
nail.
Seen for physical therapy and plan for SNF
Pain control.
Right ankle pain.
X-ray negative
CODE STATUS: Full code
DVT prophylaxis: Aspirin
Diet: Regular diet
Disposition: Discharge to rehab today
�
Total�time�spent�on�today�s�encounter�was�55�minutes�which�included�time�spent�in�counseling�the�patient/family�regarding�diagnosis�and�treatment�plan�as�listed�above,�goals�of�care,�and�symptom�management.�Case�was�discussed�with�nursing�staff,�spec
ialists,�and�care�coordinators/case�management.�All�labs�and�imaging�personally�reviewed�by�me.�Remainder�the�time�spent�in�detailed�review�of�previous�records,�lab�data,�imaging,�and�other�medical�provider�documentation.
Addendum Dictated by: Patrizia Seo MD
Addendum Dictated Date & Time: 08/14/25
Addendum Co-Signer: Patrizia Seo MD
Addendum Co-Sign Date & Time:08/14/251310
Addendum Signed by: Patrizia Seo MD
Addendum Signed Date & Time: 08/14/251311
Today's Communication/Plan
-
Plan reviewed with attending
ankle x rays
if xray negative, pt can go to rehab
Original Note:
Documented by User: Kamla Thomas MD, Resident 08/14/25 16:30
Discharge Summary
Discharge Data
Date of Admission: 08/12/25
Date of Discharge: 08/14/25
-
Pending Results: No
Hospital Course
75yoF PMH CKD, HTN, NIDDM presenting from fall from bed with R hip, chest, and ankle pain.
AFVSS. Pt hemodynamically stable. Electrolytes WNL. ED performed x rays demonstrating nondisplaced 7th rib fracture and intertrochanteric R hip fracture due to multifactorial, low level trauma and age related osteoporosis; fell from elevated bed.
Encouraged incentive spirometry and acapella, lidocaine patch on rib. PVCs seen on EKG. Electrolytes monitored. Continued home medications with goal of pain management tylenol, ibuprofen, PRN dilaudid. 08/13/25 orthopedics placed a gamma nail. PT/OT
saw her POD #0 for early ambulation and mobility. Post op instructions per orthopedics. POD #1. Aspirin 325mg. PT/OT. Pt reports continued ankle pain. Xray today demonstrated no acute fracture, soft tissue swelling. Surgery and dilutional related
anemia Hg 9.6, otherwise CBC and CMP WNL. Pt reports continued pain but able to sit in chair and perform PT/OT. Plan to go to acute rehab to strengthen before returning home to help facilitate healing in setting of hip fracture.
Discharge Plan
-
Patient Disposition: Acute Rehab Facility
Discharge Diagnosis/Procedures: nondisplaced rib fracture, intertrochanteric hip fracture s/p gamma nail
Condition: Fair
Diet: No restrictions
Activity: No restrictions
Driving Restrictions: Not until seen by your Dr
Bathing Restrictions: None
Referrals:
Aidee Rodriguez I., DO [Active, Orthopedics]
Tammi Orellana PA-C [Family Provider, Internal Medicine]
Additional Discharge Medication Instructions: Please follow up in the orthopedics office in 2 weeks for staple removal. If the rehab can remove your siri, you may follow up in office in 4 weeks. Continue Aspirin 325mg BID for 4 weeks. Keep
dressing on 7-10days.
You can receive as needed tylenol and ibuprofen. Start with taking tylenol and ibuprofen around the clock and reduce as needed. Please call orthopedic office if further pain medication is required.
If your ankle is causing pain, you can wrap it in an neelima bandage. There is no acute fracture.
Prescriptions:
Continued
bupropion HCl 300 mg Tablet Extended Release 24 Hr
300 mg PO DAILY@1100
famotidine 20 mg Tablet
20 mg PO HS 28 Days Qty: 28 0RF
amlodipine 2.5 mg Tablet
2.5 mg PO DAILY Qty: 0 0RF
cyanocobalamin (vitamin B-12) 1,000 mcg/mL Solution
1,000 mcg SC QMONTH
Rx Instructions:
due 08/24/25
duloxetine 60 mg Capsule,Delayed Release(Dr/Ec)
60 mg PO DAILY
cholecalciferol (vitamin D3) [Vitamin D3] 25 mcg (1,000 unit) Tablet
25 mcg PO DAILY
Visbiome 112.5 billion cell Capsule
1 cap PO DAILY
turmeric 400 mg Capsule
400 mg PO DAILY
latanoprost 0.005 % Drops
1 drp BOTH EYES HS
Changed
aspirin 81 mg Tablet,Delayed Release (Dr/Ec)
325 mg PO BID Qty: 0 0RF
Discharge Orders:
Discharge Patient (As Directed); Ordered 08/14/25
Ordered By: Kamla Thomas
Discharge Date and Time
Print Language: KAZAKH

Documented by User: Patrizia Seo MD 08/14/25 17:34
Discharge Summary
Discharge Data
Date of Admission: 08/12/25
Date of Discharge: 08/14/25
Discharge Plan
-
Patient Disposition: Acute Rehab Facility
Discharge Diagnosis/Procedures: nondisplaced rib fracture, intertrochanteric hip fracture s/p gamma nail
Condition: Fair
Diet: No restrictions
Activity: No restrictions
Driving Restrictions: Not until seen by your Dr
Bathing Restrictions: None
Referrals:
Aidee Rodriguez DO [Active, Orthopedics]
Tammi Orellana PA-C [Family Provider, Internal Medicine]
Additional Discharge Medication Instructions: Please follow up in the orthopedics office in 2 weeks for staple removal. If the rehab can remove your siri, you may follow up in office in 4 weeks. Continue Aspirin 325mg BID for 4 weeks. Keep
dressing on 7-10days.
You can receive as needed tylenol and ibuprofen. Start with taking tylenol and ibuprofen around the clock and reduce as needed. Please call orthopedic office if further pain medication is required.
If your ankle is causing pain, you can wrap it in an neelima bandage. There is no acute fracture.
Prescriptions:
Continued
bupropion HCl 300 mg Tablet Extended Release 24 Hr
300 mg PO DAILY@1100
famotidine 20 mg Tablet
20 mg PO HS 28 Days Qty: 28 0RF
amlodipine 2.5 mg Tablet
2.5 mg PO DAILY Qty: 0 0RF
cyanocobalamin (vitamin B-12) 1,000 mcg/mL Solution
1,000 mcg SC QMONTH
Rx Instructions:
due 08/24/25
duloxetine 60 mg Capsule,Delayed Release(Dr/Ec)
60 mg PO DAILY
cholecalciferol (vitamin D3) [Vitamin D3] 25 mcg (1,000 unit) Tablet
25 mcg PO DAILY
Visbiome 112.5 billion cell Capsule
1 cap PO DAILY
turmeric 400 mg Capsule
400 mg PO DAILY
latanoprost 0.005 % Drops
1 drp BOTH EYES HS
Changed
aspirin 81 mg Tablet,Delayed Release (Dr/Ec)
325 mg PO BID Qty: 0 0RF
Discharge Orders:
Discharge Patient (As Directed); Ordered 08/14/25
Ordered By: Kamla Thomas
Discharge Date and Time
Print Language: KAZAKH
[2025-08-14] MEDS: ASPIRIN 325 MG PO (17:38)
[2025-08-14 17:45] VITALS: BP 141/60
== END 2025-08-14 19:00 | DRG 481 ==
LOC: 2 SOUTH 13:09
PROVIDERS: Orthopaedic Surgery; Physician Assistant; ADMITTING PHYSICIAN Hospitalist; ATTENDING PHYSICIAN General Practice; EMERGENCY PHYSICIAN Emergency Medicine; FAMILY PHYSICIAN Physician Assistant Medical
PROC: 0QS606Z Reposition Right Upper Femur with Intramedullary Internal Fixation Device, Open Approach (ICD-10-PCS; 2025-08-13)
DX: M80.051A Age-related osteoporosis with current pathological fracture, right femur, initial encounter for fracture (principal); D62 Acute posthemorrhagic anemia; S22.31XA Fracture of one rib, right side, initial encounter for closed fracture; N18.9 Chronic kidney disease, unspecified; I12.9 Hypertensive chronic kidney disease with stage 1 through stage 4 chronic kidney disease, or unspecified chronic kidney disease; W06.XXXA Fall from bed, initial encounter; E11.22 Type 2 diabetes mellitus with diabetic chronic kidney disease; F32.A Depression, unspecified; F41.9 Anxiety disorder, unspecified; I49.3 Ventricular premature depolarization; M25.571 Pain in right ankle and joints of right foot; K21.9 Gastro-esophageal reflux disease without esophagitis; E53.8 Deficiency of other specified B group vitamins; Z79.82 Long term (current) use of aspirin
CPT/HCPCS: 70450; 71101; 73502; 73564; 73610; 76000; 80048; 85025; 85027; 93005; 96374; 96375; 97116; 97163; 97167; 97530; 97535; 99285; C1713; C1769